=== PATIENT | male | born 1955 | race Caucasian/White ===

== ENCOUNTER 2017-11-18 15:12 | Emergency (ER) | payer MEDICARE ==
[~2017-11-18] VITALS: Ht 175.3 cm; Wt 82.6 kg
[2017-11-18 15:35] VITALS: BP 126/85
[2017-11-18] MEDS ORDERED: KETOROLAC 30 MG/1 ML ONE (16:49)
[2017-11-18] MEDS ORDERED: KETOROLAC 30 MG/1 ML IM ONE (17:00)
== END 2017-11-18 16:58 | disposition home or self-care (01) ==
LOC: ED 16:52
DX: S42.002A Fracture of unspecified part of left clavicle, initial encounter for closed fracture (principal); W01.0XXA Fall on same level from slipping, tripping and stumbling without subsequent striking against object, initial encounter; Y93.89 Activity, other specified; Y92.89 Other specified places as the place of occurrence of the external cause; Y99.8 Other external cause status
CPT/HCPCS: 71046; 73000; 96372; 99284; J1885